=== PATIENT | female | born 1955 | race Caucasian/White ===

== ENCOUNTER 2020-04-16 10:26 | Emergency (ER) | payer MEDICAID ==
[~2020-04-16] VITALS: Ht 157.5 cm; Wt 72.6 kg
[~2020-04-16 10:26] MED LIST: ASPI81CH59 PO; BIOT5TAB3 PO; CHOL20002 PO; CYAN100056 PO; HCTZ25T; LEVO500T21 PO; MAGN400C2 PO; METO1TAB9; METO25TA93; METR500T PO; OMEG100078 PO; POTA1TAB64; SIMV-8
[2020-04-16 10:30] VITALS: BP 127/95
[2020-04-16 12:08] LABS: BUN/Creatinine Ratio 21.9; Potassium 3.6 mmol/L (3.5-5.1)
== END 2020-04-16 13:18 | disposition home or self-care (01) ==
LOC: ER 10:26 → EDBD 10:26 → ER 13:18
DX: I47.1 Supraventricular tachycardia (principal); U07.1 COVID-19; I11.0 Hypertensive heart disease with heart failure; I50.9 Heart failure, unspecified; E78.5 Hyperlipidemia, unspecified; Z79.899 Other long term (current) drug therapy
CPT/HCPCS: 36415; 80048; 93005